=== PATIENT | female | born 1955 | race Caucasian/White ===

== ENCOUNTER 2018-07-26 13:49 | Outpatient (CLI) | payer OTHER ==
[2018-07-26 14:35] LABS: Anion Gap 11 mmol/L (10-20); BUN (Urea Nitrogen) 20 mg/dL (9.8-20.1); Calc. Creatinine Clearance 0 mL/min (70-130); Calcium 8.5 mg/dL (7.8-10.44); Carbon Dioxide 27 mmol/L (23-31); Chloride 108 mmol/L (98-107); Estimated GFR-MDRD Greater than 90; Glucose 108 mg/dL (80-115); Magnesium 2.3 mg/dL (1.6-2.6); Phosphorus 3.1 mg/dL (2.3-4.7); Potassium 4.2 mmol/L (3.5-5.1); Sodium 142 mmol/L (136-145)
== END 2018-07-26 13:50 | disposition home or self-care (01) ==
LOC: MADLAB 13:49
PROVIDERS: ATTEND Transplant Surgery
DX: E86.0 Dehydration (principal); E46 Unspecified protein-calorie malnutrition
CPT/HCPCS: 80048; 83735; 84100

== ENCOUNTER 2018-08-12 15:32 | Outpatient (CLI) | payer OTHER ==
[2018-08-12 16:09] LABS: Anion Gap 10 mmol/L (10-20); BUN (Urea Nitrogen) 26 mg/dL (9.8-20.1); Calc. Creatinine Clearance 0 mL/min (70-130); Calcium 8.6 mg/dL (7.8-10.44); Carbon Dioxide 29 mmol/L (23-31); Chloride 106 mmol/L (98-107); Estimated GFR-MDRD 83; Glucose 92 mg/dL (80-115); Magnesium 2.1 mg/dL (1.6-2.6); Phosphorus 3.8 mg/dL (2.3-4.7); Potassium 4.2 mmol/L (3.5-5.1); Sodium 141 mmol/L (136-145)
== END 2018-08-12 15:33 | disposition home or self-care (01) ==
LOC: MADLAB 15:32
PROVIDERS: ATTEND Internal Medicine
DX: C22.1 Intrahepatic bile duct carcinoma (principal)
CPT/HCPCS: 80048; 83735; 84100